=== PATIENT | female | born 2000 | race Caucasian/White ===

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

== ENCOUNTER 2023-04-23 03:13 | Emergency (ER) | payer OTHER ==
[~2023-04-23] VITALS: Ht 167.6 cm; Wt 65.8 kg
[2023-04-23] MEDS ORDERED: ONDA4ODT MM (03:57)
[2023-04-23 04:55] VITALS: BP 111/69
== END 2023-04-23 04:56 | disposition home or self-care (01) ==
LOC: ER 03:13
DX: T40.711A Poisoning by cannabis, accidental (unintentional), initial encounter (principal)
CPT/HCPCS: 99283

== ENCOUNTER 2023-06-03 13:39 | Emergency (ER) | payer OTHER ==
[~2023-06-03] VITALS: Ht 160 cm; Wt 59.0 kg
[~2023-06-03 13:39] MED LIST: ONDA4 PO; ONDA4ODT MM
[2023-06-03 13:52] VITALS: BP 134/72
[2023-06-03] MEDS ORDERED: Ondansetron 4 MG SoluTab SL ONE (13:55)
== END 2023-06-03 14:50 | disposition left against medical advice (07) ==
LOC: ER 13:39
DX: Z53.21 Procedure and treatment not carried out due to patient leaving prior to being seen by health care provider (principal)
CPT/HCPCS: 99281; A9270

== ENCOUNTER 2024-04-08 14:02 | Inpatient (IN) | payer OTHER ==
[2024-04-08] VITALS (38 sets, daily range): BP systolic 124–171; BP diastolic 68–103
[~2024-04-08] VITALS: Ht 160 cm; Wt 78.4 kg
[~2024-04-08 14:02] MED LIST changes: +PRENATAL TABLE1 EAC2 PO
[2024-04-08] MEDS ORDERED: Methylergonovine Maleate 0.2MG / ML 1ML Amp IM PRN (15:20)
[2024-04-08] MEDS ORDERED: Ondansetron HCl 2 MG / ML 2ML Vial IV PRN ×2 (15:20→18:55)
[2024-04-08] MEDS ORDERED: Misoprostol 200 MCG Tab BC PRN (15:20)
[2024-04-08] MEDS ORDERED: OXYTOCIN/RINGER'S LACTATE 500 ML IV SCH ×2 (15:20→15:55)
[2024-04-08] MEDS ORDERED: OXYTOCIN/RINGER'S LACTATE 500 ML IV PRN (15:20)
[2024-04-08] MEDS ORDERED: Carboprost Tromethamine 250 MCG/ML 1ML Amp IM PRN (15:20)
[2024-04-08] MEDS ORDERED: Misoprostol 200 MCG Tab PR PRN (15:20)
[2024-04-08] MEDS ORDERED: Lactated Ringer's 1,000 ML IV PRN (15:20)
[2024-04-08] MEDS ORDERED: Lactated Ringer's 1,000 ML IV SCH ×4 (15:20→15:55)
[2024-04-08] MEDS ORDERED: ePHEDrine Sulfate 50 MG/ML 1ML Injection XX PRN (15:20)
[2024-04-08] MEDS ORDERED: FentaNYL 2mcg/ml-Bup 0.1% Epd 250 ML EPI PRN ×2 (15:20→19:10)
[2024-04-08] MEDS ORDERED: Acetaminophen 500 MG Tab PO PRN (15:20)
[2024-04-08] MEDS ORDERED: Oxytocin 10 Unit / ML Vial IM PRN (15:20)
[2024-04-08] MEDS ORDERED: FentaNYL Citrate 50 MCG/ML 2 ML Injection IV PRN (15:25)
[2024-04-08] MEDS ORDERED: Calcium Carbonate 500 MG Tab Chew PO PRN (15:25)
[2024-04-08] MEDS ORDERED: Tranexamic Acid 1,000 MG in NS 100 ML IV SCH (15:30)
[2024-04-08] MEDS ORDERED: Ampicillin Sod 2,000 MG in NS 100 ML IV SCH (16:00)
[2024-04-08 16:02] LABS: BASOPHILS ABSOLUTE AUTO 0.06 K/mm3 (0.00-0.23); BASOPHILS PERCENT AUTO 0 % (0-2); EOSINOPHILS ABSOLUTE AUTO 0.16 K/mm3 (0.00-0.68); EOSINOPHILS PERCENT AUTO 1 % (0-6); Hematocrit 41.6 % (33.0-51.0); Hemoglobin 14.5 g/dL (11.5-16.0); IMMATURE GRAN ABSOLUTE AUTO 0.27 K/mm3 (0.00-0.10); IMMATURE GRAN PERCENT AUTO 2 % (0-1); LYMPHOCYTES PERCENT AUTO 16 % (21-46); MONOCYTES ABSOLUTE AUTO 1.28 K/mm3 (0.16-1.47); MONOCYTES PERCENT AUTO 8 % (4-13); Mean Corpuscular HGB 29.8 pg (26.0-34.0); Mean Corpuscular HGB Conc 34.9 g/dL (31.5-36.5); Mean Corpuscular Volume 85 fL (80-100); Mean Platelet Volume 11.8 fL (9.1-12.4); NEUTROPHILS ABSOLUTE AUTO 11.51 K/mm3 (1.96-9.15); NEUTROPHILS PERCENT AUTO 73 % (41-73); Platelet Count 154 K/mm3 (150-400); RDW Coefficient Variation 13.1 % (11.7-14.2); Red Blood Cell Count 4.87 M/mm3 (3.80-5.20); White Blood Cell Count 15.78 K/mm3 (4.00-11.30)
[2024-04-08] MEDS ORDERED: Naloxone HCl 0.4MG / ML 1ML Vial IV PRN (18:55)
[2024-04-08] MEDS ORDERED: ePHEDrine Sulfate 50 MG/ML 1ML Injection IV PRN (19:00)
[2024-04-08] MEDS ORDERED: DiphenhydrAMINE HCl 50 MG/ML 1ML Vial IV PRN (19:00)
[2024-04-08] MEDS ORDERED: Metoclopramide HCl 5MG / ML 2ML Vial IV PRN (19:00)
[2024-04-08] MEDS ORDERED: Lidocaine 2% 5 ML SDV ONE (19:23)
[2024-04-08] MEDS ORDERED: Lidocaine 2% 5 ML SDV EPI ONE (19:30)
[2024-04-09] VITALS (16 sets, daily range): BP systolic 116–147; BP diastolic 56–89
[2024-04-09] MEDS ORDERED: CeFAZolin Sodium 2,000 MG in NS 100 ML IV SCH (01:25)
[2024-04-09] MEDS ORDERED: Azithromycin 500 MG in NS 250 ML IV SCH (01:25)
[2024-04-09] MEDS ORDERED: Lactated Ringer's 1,000 ML IV SCH ×2 (01:30→04:20)
[2024-04-09] MEDS ORDERED: Citric Acid/Sodium Citrate 30 ML BTL PO ONE (01:45)
[2024-04-09] MEDS ORDERED: ePHEDrine Sulfate 50 MG/ML 1ML Injection ONE (02:30)
[2024-04-09] MEDS ORDERED: Oxytocin 10 Unit / ML Vial ONE (02:42)
[2024-04-09] MEDS ORDERED: HYDROmorphone HCl/Pf 1MG SYR IV PRN (03:10)
[2024-04-09] MEDS ORDERED: Albuterol 2.5 MG/3 ML VIAL INH PRN (03:15)
[2024-04-09] MEDS ORDERED: FentaNYL Citrate 50 MCG/ML 2 ML Injection IV PRN (03:15)
[2024-04-09] MEDS ORDERED: Morphine Sulfate 4 MG/1 ML Injection IV PRN (03:15)
[2024-04-09] MEDS ORDERED: Dexamethasone Sodium Phosphate 4 MG/ML 5ML VIAL IV PRN (03:15)
[2024-04-09 03:21] LABS: PCO2 Cord - Venous 72.9 mmHg (40-50); pH Umbilical Cord - Venous 7.09 (7.26-7.35)
[2024-04-09 03:22] LABS: PO2 Cord - Venous < 14.0 mmHg (28-32)
[2024-04-09 03:24] LABS: PCO2 Cord - Arterial 103 mmHg (40-50)
[2024-04-09 03:25] LABS: PO2 Cord - Arterial 16.9 mmHg (16-20)
[2024-04-09] MEDS ORDERED: Meperidine HCl 50 MG/ML 1ML Injection IV PRN (04:00)
[2024-04-09] MEDS ORDERED: Misoprostol 200 MCG Tab PR PRN (04:15)
[2024-04-09] MEDS ORDERED: DiphenhydrAMINE HCL 25 MG Cap PO PRN (04:15)
[2024-04-09] MEDS ORDERED: Acetaminophen 500 MG Tab PO PRN (04:15)
[2024-04-09] MEDS ORDERED: OXYTOCIN/RINGER'S LACTATE 500 ML IV SCH (04:20)
[2024-04-09] MEDS ORDERED: OxyCODONE 5 mg/Acetamin 325 mg TABLET PO PRN (04:20)
[2024-04-09] MEDS ORDERED: Methylergonovine Maleate 0.2 MG Tab PO PRN (04:20)
[2024-04-09] MEDS ORDERED: Lanolin Cream TOP PRN (04:20)
[2024-04-09] MEDS ORDERED: Ondansetron HCl 2 MG / ML 2ML Vial IV PRN (04:20)
[2024-04-09] MEDS ORDERED: OxyCODONE HCL 5 MG TAB PO PRN (04:20)
[2024-04-09] MEDS ORDERED: Simethicone 80 MG Chew PO PRN (04:25)
[2024-04-09] MEDS ORDERED: Ketorolac Tromethamine 30mg Vial IV SCH (05:00)
[2024-04-09 07:25] LABS: BASOPHILS ABSOLUTE AUTO 0.05 K/mm3 (0.00-0.23); BASOPHILS PERCENT AUTO 0 % (0-2); EOSINOPHILS ABSOLUTE AUTO 0.01 K/mm3 (0.00-0.68); EOSINOPHILS PERCENT AUTO 0 % (0-6); Hematocrit 34.6 % (33.0-51.0); Hemoglobin 12.1 g/dL (11.5-16.0); IMMATURE GRAN ABSOLUTE AUTO 0.36 K/mm3 (0.00-0.10); IMMATURE GRAN PERCENT AUTO 2 % (0-1); LYMPHOCYTES ABSOLUTE AUTO 1.32 K/mm3 (0.84-5.20); LYMPHOCYTES PERCENT AUTO 6 % (21-46); MONOCYTES ABSOLUTE AUTO 1.31 K/mm3 (0.16-1.47); MONOCYTES PERCENT AUTO 6 % (4-13); Mean Corpuscular HGB 29.9 pg (26.0-34.0); Mean Corpuscular Volume 85 fL (80-100); NEUTROPHILS ABSOLUTE AUTO 20.53 K/mm3 (1.96-9.15); NEUTROPHILS PERCENT AUTO 87 % (41-73); Platelet Count 156 K/mm3 (150-400); RDW Standard Deviation 40.1 fL (35.1-46.3); Red Blood Cell Count 4.05 M/mm3 (3.80-5.20); White Blood Cell Count 23.58 K/mm3 (4.00-11.30)
[2024-04-09] MEDS ORDERED: Prenatal Vit/FE Fumarate/FA 1 Tab PO SCH (09:00)
[2024-04-09] MEDS ORDERED: Docusate Sodium 100 MG Cap PO SCH (09:00)
[2024-04-09] MEDS ORDERED: Ketorolac Tromethamine 30mg Vial IV ONE (21:35)
[2024-04-10] MEDS ORDERED: Ibuprofen 400 MG Tab PO SCH
[2024-04-10 00:18] VITALS: BP 122/71
[2024-04-10 03:55] VITALS: BP 140/74
[2024-04-10 08:05] VITALS: BP 116/70
[2024-04-10 13:00] VITALS: BP 118/74
[2024-04-10 16:12] VITALS: BP 121/75
[2024-04-10 20:02] VITALS: BP 130/74
[2024-04-11 01:17] VITALS: BP 128/86
[2024-04-11 04:17] VITALS: BP 122/69
[2024-04-11 07:40] VITALS: BP 128/76
[2024-04-11 11:56] VITALS: BP 132/89
== END 2024-04-11 12:15 | disposition home or self-care (01) | DRG 788 ==
LOC: OBS 14:02 → BC 14:03 → OBS 15:22 → BC 15:24
PROVIDERS: ADMIT Obstetrics & Gynecology
PROC: 10D00Z1 Extraction of Products of Conception, Low, Open Approach (ICD-10-PCS; principal; 2024-04-09 07:15)
DX: O42.02 Full-term premature rupture of membranes, onset of labor within 24 hours of rupture (principal); Z3A.39 39 weeks gestation of pregnancy; O62.0 Primary inadequate contractions; O99.214 Obesity complicating childbirth; Z37.0 Single live birth; O32.8XX0 Maternal care for other malpresentation of fetus, not applicable or unspecified; O46.93 Antepartum hemorrhage, unspecified, third trimester; Z3A.38 38 weeks gestation of pregnancy
CPT/HCPCS: 36415; 51702; 59025; 80053; 82570; 82803; 84156; 85025; 86850; 86900; 86901; 86923; 87210; 99211; A9270; G0378; J0290; J0456; J0690; J1885; J2405; J2590; J2765; J7050; J7120